=== PATIENT | male | born 1970 | race Caucasian/White ===

== ENCOUNTER 2023-12-20 11:20 | Outpatient (REF) | payer MEDICAID, SELFPAY ==
--- OUTSIDE RECORDS SUMMARY | 2023-12-20 11:23 | XMS_ITS | Encounter Summary ---
Author Organization [facility] Address [address] [place] [address] Care Team Providers Care Grounds Caretaker Name Role Phone Unavailable Primary Care Provider Unavailabl e Encounter Details Date Type Department Care Team (Late st Contact Info) Description 04/08/2005 13:27 EST Hospital Encounter [facility] - Other [address] [place] [address] Shivam Watson MD [address] [place] [address] Social History Tobacco Use Types Packs/Day Years Used Date Smoking Tobacco: Never Assessed Interpersonal Safety Answer Date Record ed Physically Hurt Never 11/10/2019 Verbally Threaten Not on file 11/10/2019 Sex and Gender Information Value Date Recorded Sex Assigned at Not on file Gender Identity Not on file Sexual Orientation Not on file documented as of this encounter Plan of Treatment Not on file documented as of this encounter Visit Diagnoses Not on filedocumented in this encounter
--- OUTSIDE RECORDS SUMMARY | 2023-12-20 11:23 | XMS_ITS | Encounter Summary ---
Author Organization [facility] Address [address] [place] [address] Care Team Providers Care Accreditation Manager Name Role Phone Unavailable Primary Care Provider Unavailabl e Encounter Details Date Type Department Care Team (Late st Contact Info) Description 05/13/2013 Results Only [facility] - [facility] ([facility] [address] [place] [address] [id number] Hemanth Chavez MD [address] [place] [id number] Social History Tobacco Use Types Packs/Day Years Used Date Smoking Tobacco: Never Assessed Sex and Gender Information Value Date Recorded Sex Assigned at Not on file Gender Identity Not on file Sexual Orientation Not on file documented as of this encounter Plan of Treatment Not on file documented as of this encounter Procedures Procedure Name Priority Date/Time Associated Diagnosis Comments SURGICAL PATHOLOGY Routine 05/13/2013 16 :21 EST documented in this encounter Results * SURGICAL PATHOLOGY (05/13/2013 16:21 EST) Pathology Report: SURGICAL PATHOLOGY REPORT Reports generated via electronic interface contain original data; however they are lacking the format of the original report. Caution should be taken when reading/interpreti ng unformatted reports. Name: ? DERRELL APODACA ? Accession #: ? [id number] ? : ? 1970 (Age: 43) ??M ? Collect Date: ? 05/13/2013 ? Location: ? [facility] ? Receive Date: ? 05/14/2013 ? Provider: HEMANTH CHAVEZ MD Copy to: ABRAHAN CLARK MD ? Final Pathologic Diagnosis: SUBMITTED SPERMATOCELE, RIGHT, EXCISION: - ??Spermatocele (3.2 cm). - ??Adjacent epididymis with no specific pathologic features. Document reviewed and electronically signed by: HAILEY CONDE MD Report ??Date: 05/17/2013 15:18 By the signature above, the attending physician certifies that he/she has personally conducted a gross and/or microscopic examination of the described specimens and rendered or confirmed the above diagnosis. Specimen(s) Received: Right spermatocele Clinical History: R supratesticular mass; clinical diagnosis code: ??550.90, 608.1 Gross Description: ? Received in formalin labelled with proper patient identification (initials B, R) and right spermatocele is a cosme-white fibromembranous cystic structure (3.2 x 2.2 x 1.6 cm). The specimen contains cloudy white fluid and has a smooth goyal-white inner lining without excrescences. The wall is translucent and less than 0.1 cm in thickness with no nodules present. Bookmaker'S Clerk sections are submitted as 1 and 2. Tess Herrera 05/15/2013 09:13 AM End of Report [facility]CH[facility] 05/13/2013 16:2 1 EST 05/14/2013 16:21 EST Hemanth Chavez MD PATHOLOGY ORDERABLES [facility] [address] [place] [address] documented in this encounter Visit Diagnoses Not on filedocumented in this encounter
--- OUTSIDE RECORDS SUMMARY | 2023-12-20 11:23 | XMS_ITS | Encounter Summary ---
Author Organization [facility] Address [address] [place] [address] Care Team Providers Care Dental Officer Name Role Phone Unavailable Primary Care Provider Unavailabl e Encounter Details Date Type Department Care Team (Latest Contact Info) Description 05/13/2013 13:41 EST - 05/13/2013 23:59 EST Hospital Encounter [address] [address] Unknown, Provider, Discharge Disposition: Home or Self Care Social History Tobacco Use Types Packs/Day Years Used Date Smoking Tobacco: Never Assessed Sex and Gender Information Value Date Recorded Sex Assigned at Not on file Gender Identity Not on file Sexual Orientation Not on file documented as of this encounter Discharge Disposition Disposition Code Departure Means Destination Home or Self [facility] documented in this encounter Plan of Treatment Not on file documented as of this encounter Visit Diagnoses Not on filedocumented in this encounter
--- OUTSIDE RECORDS SUMMARY | 2023-12-20 11:23 | XMS_ITS | Referral Summary ---
Author Organization [facility] Address [address] [place] [address] Care Team Providers Care Antisubmarine Weapons Officer Name Role Phone Tyler Tiwari DO Primary Care Provider [phone] Social History Tobacco Use Types Packs/Day Years Used Date Smoking Tobacco: Never Assessed Interpersonal Safety Answer Date Record ed Physically Hurt Never 11/10/2019 Verbally Threaten Not on file 11/10/2019 Sex and Gender Information Value Date Recorded Sex Assigned at Not on file Gender Identity Not on file Sexual Orientation Not on file Plan of Treatment Not on file Care Teams Antisubmarine Weapons Officer Relationship Specialty Start Date End Date Tyler Tiwari DO PCP - General 07/20/17
--- OUTSIDE RECORDS SUMMARY | 2023-12-20 11:23 | XMS_ITS | Encounter Summary ---
Author Organization [facility] Address [address] [place] [address] Care Team Providers Care Rolling Machine Operator Name Role Phone Unavailable Primary Care Provider Unavailabl e Encounter Details Date Type Department Care Team (Late st Contact Info) Description 02/18/2008 Before PRISM Converted Visit ([facility] - [facility] [address] [place] [address] Shivam Iyer MD [address] [place] [address] Social History Tobacco Use Types Packs/Day Years Used Date Smoking Tobacco: Never Assessed Sex and Gender Information Value Date Recorded Sex Assigned at Not on file Gender Identity Not on file Sexual Orientation Not on file documented as of this encounter Plan of Treatment Not on file documented as of this encounter Procedures Procedure Name Priority Date/Time Associated Diagnosis Comments SURGICAL PATHOLOGY Routine 02/18/2008 0:00 EST documented in this encounter Results * SURGICAL PATHOLOGY (02/18/2008 0:00 EST) Pathology Report: SURGICAL PATHOLOGY REPORT ? Reports generated via electronic interface contain original data; ? however they are lacking the format of the original report. ? Caution should be taken when reading/interpreti ng unformatted reports. ? Name: ? PAULIE, DERRELL E ? Accession #: ? [id number] ? : ? 1970 (Age: 38) ??M ? Collect Date: ? 02/18/2008 ? Location: ? [facility] ? Receive Date: ? 02/18/2008 ? Provider: SHIVAM IYER MD ? Copy to: MICAH MYERS WHEEL ALIGNER ? Final Pathologic Diagnosis: ? A. ?Rectum, biopsy: ? 1. ?Patchy superficial acute proctitis. ? 2. ? Intestinal spirochetosis. ? B. ?Duodenum, biopsy: ? 1. ?? No specific pathologic features. ? Document reviewed and electronically signed by: ? NATANAELASEN NELLA MBCHB ? Report ??Date: 02/20/2008 16:57 ? By the signature above, the attending physician certifies that he/she has ? personally conducted a gross and/or microscopic examination of the described ? specimens and rendered or confirmed the above diagnosis. ? Specimen(s) Received: ? A. ?Bx rectum (#1) ? B. ? Bx duodenum (#2) ? Clinical History: ? S/S acid peptic disease, diarrhea, abd cramps ? Gross Description: ? Received in Quibbe's fixative labelled Paulie and #1 bx rectum are ? three pieces of tissue which range from 0.8 x 0.2 x 0.2 cm to 0.2 x 0.2 x 0.1 cm which are submitted intact as (A). ? Received in Quibb's fixative labelled Paulie and #2 bx duodenum are two ?? pieces of tissue which measures 0.3 x 0.3 x 0.2 cm and 0.2 x 0.2 x 0.2 cm which are submitted intact as (B). ??(David Pool/hanh ? End of Report ? KAMRAN HUTCHINS 02/18/2008 02/18/2008 10: 14 EST Shivam Iyer MD PATHOLOGY ORDERABLE S [facility] [address] [place] [address] documented in this encounter Visit Diagnoses Not on filedocumented in this encounter
--- OUTSIDE RECORDS SUMMARY | 2023-12-20 11:23 | XMS_ITS | Clinical Summary ---
Author Organization [facility] Address [address] [place] [address] Care Team Providers Care Genetics Nurse Name Role Phone Tyler Tiwari DO Primary Care Provider [phone] Social History Tobacco Use Types Packs/Day Years Used Date Smoking Tobacco: Never Assessed Interpersonal Safety Answer Date Record ed Physically Hurt Never 11/10/2019 Verbally Threaten Not on file 11/10/2019 Sex and Gender Information Value Date Recorded Sex Assigned at Not on file Gender Identity Not on file Sexual Orientation Not on file Plan of Treatment Health Maintenance Due Date Last Done Comments Hepatitis C Screen 1970 Hepatitis B Vaccine (1 of 3 - 19+ 3-dose series) 01/05 COVID-19 Vaccine ( season) 2022 Care Teams Genetics Nurse Relationship Specialty Start Date End Date Tyler Tiwari DO PCP - General 07/20/17
--- OUTSIDE RECORDS SUMMARY | 2023-12-20 11:23 | XMS_ITS | Encounter Summary ---
Author Organization [facility] Address [address] [place] [address] Care Team Providers Care Instrument And Controls Technician Name Role Phone Unavailable Primary Care Provider Georgeabl e Encounter Details Date Type Department Care Team (Late st Contact Info) Description 04/08/2005 Results Only [facility] - [place] conversion [address] [place] [address] Shivam Iyer MD [address] [place] [address] Social History Tobacco Use Types Packs/Day Years Used Date Smoking Tobacco: Never Assessed Sex and Gender Information Value Date Recorded Sex Assigned at Not on file Gender Identity Not on file Sexual Orientation Not on file documented as of this encounter Plan of Treatment Not on file documented as of this encounter Procedures Procedure Name Priority Date/Time Associated Diagnosis Comments SURGICAL PATHOLOGY Routine 04/08/2005 0:00 EST documented in this encounter Results * SURGICAL PATHOLOGY (04/08/2005 0:00 EST) Pathology Report: SURGICAL PATHOLOGY REPORT Reports generated via electronic interface contain original data; however they are lacking the format of the original report. Caution should be taken when reading/interpreti ng unformatted reports. Name: ? DERRELL APODACA ? Accession #: ? [id number] ? : ? 1970 (Age: 35) ??M ? Collect Date: ? 04/08/2005 ? Location: ? [facility] ? Receive Date: ? 04/09/2005 ? Provider: SHIVAM IYER MD Copy to: MARIAJOSE ETIENNE WELDER 2ND SHIFT ? Final Pathologic Diagnosis: A. ?Thyroid, right lobe and partial left lobe, subtotal thyroidectomy: 1. ?Papillary thyroid carcinoma. ? - Extension into parathyroidal soft tissue. - Tumor size: 3.0 cm maximum dimension (AJCC:pT3). ??See comment. - Tumor abuts left anterolateral resection margin (A27, A28). - Sixteen of nineteen perithyroidal lymph nodes positive for malignancy (16/19)(AJCC:pN1). B. ?Lymph nodes, right anterior triangle, excision: 1. ?No metastatic carcinoma. 2. ?One parathyroid gland. 3. ?No lymph node identified. C. ?Soft tissue, superior mediastinum, excision: 1. ?No metastatic carcinoma. 2. ?Vascular adipose tissue. 3. ?No lymph node identified. D. ?Lymph node, left anterior triangle, excision: 1. ?No metastatic carcinoma. 2. ?Vascular adipose tissue. 3. ?No lymph node identified. Comment: ? The AJCC:pT3 pN1 correlates with a stage III. ??(Dr. Tovar)/[facility] Document reviewed and electronically signed by: Juliana Costello MD Report ??Date: 04/15/2005 15:30 By the signature above, the attending physician certifies that he/she has personally conducted a gross and/or microscopic examination of the described specimens and rendered or confirmed the above diagnosis. Specimen(s) Received: A. ?Thyroid right lobe + partial left lobe: ??long suture right, short suture left, double suture anterior (#1) B. ?Rt ant triangle (#2) C. ?Superior mediastinum (#3) D. ?Left anterior triangle (#4) Clinical History: ? Papillary Ca thyroidectomy FNA Gross Description: ? Received in formalin labelled [place] and thyroid Rt lobe, partial Lt long suture right, short suture left, double anterior is the product of a right lobectomy and partial left lobectomy which weighs 38.95 grams. ??The specimen is oriented as per the surgical pathology requisition slip and the specimen container label. ??The specimen is bisected into right and left lobes. ??Posterior is inked blue and remaining surfaces inked black. ??The right lobe measures 7.0 cm from superior to inferior, 3.0 cm from lateral to medial, and 1.5 cm from anterior to posterior. ??The left lobe measures 5.7 cm from superior to inferior, 3.0 cm from medial to lateral, and ranges from 1.0 cm to 2.0 cm at the isthmus from anterior to posterior. ??The capsule of the entire specimen is goyal-red and appears intact. ??Serially sectioning both lobes from superior to inferior reveals a firm, white-yellow nodule in the isthmus extending into both the right and left lobes which measures 3.0 x 2.5 x 2.0 cm, appears encapsulated, extending to but not through the capsule. ??The right lobe is serially sectioned from superior to inferior into nineteen levels and this nodule is located within levels 13-19 (with level 19 being most inferior). ??The left lobe is serially sectioned from superior to inferior into thirteen levels with this nodule located in levels 6-13 (with level 13 being most inferior). ??The uninvolved parenchyma is homogeneous and deep red. ??The entire specimen is submitted as follows: BLOCK GREY A1 ?Level 1, right lobe, superior, perpendicular sections A2 ?Level 2, right lobe A3 ?Level 3, right lobe A4 ?Level 4, right lobe A5 ?Level 5, right lobe A6 ?Level 6, right lobe A7 ?Level 7, right lobe A8 ?Level 8, right lobe A9 ?Level 9, right lobe A10 ?Level 10, right lobe A11 ?Level 11, right lobe A12 ?Level 12, right lobe A13 ?Level 13, right lobe A14 ?Level 14, right lobe A15 ?Level 15, right lobe A16 ?Level 16, right lobe A17 ?Level 17, right lobe A18 ?Level 18, bisected right lobe A19, A20 ? Level 19, right lobe, inferior, perpendicular sections A21 ?Level 1, left lobe, superior, perpendicular sections A22 ?Level 2 and 3, left lobe A23 ?Level 4, left lobe A24 ?Level 5, left lobe A25 ?Level 6, bisected left lobe A26 ?Level 7, left lobe A27 ?Level 8, bisected left lobe A28, A29 ? Level 9, left lobe, bisected and thinned A30, A31 ? Level 10, left lobe, bisected A32 ?Level 11, left lobe A33 ?Level 12, left lobe A34 ?Level 13, left lobe, inferior, perpendicular sections Received in formalin labelled [place] and right ant triangle lymph nodes are two possible goyal-pink lymph nodes with a small amount of adipose tissue received on a Telfa pad. ??The smaller lymph node measures 0.8 x 0.3 x 0.2 cm, and the larger one measures 0.8 x 0.8 x 0.3 cm. ??The entire specimen is submitted as (B). Received in formalin labelled [place] and superior mediastinum is a 0.8 x 0.5 x 0.2 cm lymph node received on a Telfa pad and entirely submitted as (C). Received in formalin labelled [place] and left ant triangle lymph node is a 1.7 x 1.0 x 0.1 cm portion of fibrofatty tissue containing a possible lymph node received on a Telfa pad and entirely submitted as (D). ??(Dr. Bond)/kmm ?? End of Report KAMRAN HUTCHINS 04/08/2005 04/09/2005 8:1 8 EST Shivam Iyer MD PATHOLOGY ORDERABLE [facility] [address] [place] [address] documented in this encounter Visit Diagnoses Not on filedocumented in this encounter
--- OUTSIDE RECORDS SUMMARY | 2023-12-20 11:23 | XMS_ITS | Encounter Summary ---
Author Organization [facility] Address [address] [place] [address] Care Team Providers Care Insurance Marketing Rep Name Role Phone Unavailable Primary Care Provider Allan e Encounter Details Date Type Department Care Team (Late st Contact Info) Description 03/23/2005 Results Only [facility] - [place] conversion [address] [place] [address] Shivam Iyer MD [address] [place] [address] Social History Tobacco Use Types Packs/Day Years Used Date Smoking Tobacco: Never Assessed Sex and Gender Information Value Date Recorded Sex Assigned at Not on file Gender Identity Not on file Sexual Orientation Not on file documented as of this encounter Plan of Treatment Not on file documented as of this encounter Procedures Procedure Name Priority Date/Time Associated Diagnosis Comments CYTOPATHOLOGY Routine 03/23/2005 0:00 EST documented in this encounter Results * CYTOPATHOLOGY (03/23/2005 0:00 EST) Pathology Report: CYTOPATHOLOGY REPORT Reports generated via electronic interface contain original data; however they are lacking the format of the original report. Caution should be taken when reading/interpreti ng unformatted reports. Name: ? DERRELL APODACA ? Accession #: ? [id number] : ? 1970 (Age: 35) ??M ?Collect Date: ? 03/23/2005 Location: ? [facility] ? Receive Date: ? 03/25/2005 Provider: ? SHIVAM IYER MD Copy to: ?MARIAJOSE ETIENNE CONDUIT CLEANER ? CYTOLOGIC DIAGNOSIS: ? Thyroid, fine needle aspiration: 1. ?Positive for malignant cells. 2. ?Papillary carcinoma. ??See comment. ? COMMENT: ? Moderately cellular cytologic preparation.Two populations of cells, the usual follicular cell as well as Hurthle cell type epithelium. ??Several nuclear grooves and nuclear inclusions are seen. ??Many of the cells have hyperchromatic powdery chromatin and oval-shaped nuclei. Multiple psammoma bodies are also seen. ??These features are diagnostic of papillary carcinoma. ??(Dr. Maloney)/[facility] Document reviewed and electronically signed by: ? AUBREY MALONEY MD Report Date: ??04/05/2005 14:10 By the signature above, the attending physician certifies that he/she has personally conducted a gross and/or microscopic examination of the described specimens and rendered or confirmed the above diagnosis. Specimen Type: ? Thyroid, Fine Needle Aspiration Clinical History: ? Clinical diagnosis code: ??241.0 ? Gross Description: ? 1 tube of Cytolyt was received and processed by selective cellular enhancement technique. ? End of Report KAMRAN HUTCHINS 03/23/2005 03/25/2005 8:3 5 EST Shivam Iyer MD PATHOLOGY ORDERABLE S [facility] [address] [place] [address] documented in this encounter Visit Diagnoses Not on filedocumented in this encounter
--- OUTSIDE RECORDS SUMMARY | 2023-12-20 11:23 | XMS_ITS | Encounter Summary ---
Author Organization [facility] Address [address] [place] [address] Care Team Providers Care Sleeve Turner Name Role Phone Unknown, Provider Primary Care Provider [phone] Encounter Details Date Type Department Care Team (Late st Contact Info) Description 07/17/2017 Results Only [facility] [phone] Lobo Roper MD [address] [place] [address] [place] [address] Social History Tobacco Use Types Packs/Day Years Used Date Smoking Tobacco: Never Assessed Sex and Gender Information Value Date Recorded Sex Assigned at Not on file Gender Identity Not on file Sexual Orientation Not on file documented as of this encounter Plan of Treatment Not on file documented as of this encounter Procedures Procedure Name Priority Date/Time Associated Diagnosis Comments SURGICAL PATHOLOGY Routine 07/17/2017 15 :44 EDT documented in this encounter Results * SURGICAL PATHOLOGY (07/17/2017 15:44 EDT) Pathology Report: SURGICAL PATHOLOGY REPORT Reports generated via electronic interface contain original data; however they are lacking the format of the original report. Caution should be taken when reading/interpret ing unformatted reports. Name: ? DERRELL APODACA ? Accession #: ? [id number] ? : ? 1970 (Age: 47) ??M ? Collect Date: ? 07/17/2017 ? Location: ? [facility] ? Receive Date: ? 07/18/2017 ? Provider: LOBO ROPER MD Copy to: ABRAHAN SHEPPARD DO ? Final Pathologic Diagnosis: A. ??STOMACH ANTRUM, BIOPSY: - Chronic Active Gastritis. - Positive for numerous Helicobacter-pylo ri organisms. B. ??STOMACH BODY, BIOPSY: - Chronic Active Gastritis. - Positive for numerous Helicobacter-pylo ri organisms. Document reviewed and electronically signed by: DEMETRIUS GEE MD Report ??Date: 07/20/2017 11:28 By the signature above, the attending physician certifies that he/she has personally conducted a gross and/or microscopic examination of the described specimens and rendered or confirmed the above diagnosis. Specimen(s) Received: A. ??Gastric antrum bx B. ??Gastric body bx Clinical History: C/C GERD, no Shine's esophagus noted, has endoscopic evidence of gastritis; clinical diagnosis code: ??K21.9 Gross Description: A. ?Received in formalin labelled with proper patient identification (initials B, R) and gastric antrum bx are two fragments of pearly white tissue measuring 0.2 cm and 0.3 cm in greatest dimension. The specimens are submitted entirely in A1. B. ?Received in formalin labelled with proper patient identification (initials B, R) and gastric body bx is a single fragment of goyal-white tissue (0.2 x 0.2 x 0.2 cm). The specimen is submitted entirely in B1. YANDEL Hernandez (ASCP) 07/18/2017 4:00 PM End of Report [facility] 07/17/2017 15:4 4 EDT 07/18/2017 15:44 EDT Lobo Roper MD PATHOLOGY ORDERABLES [facility] [address] [place] [address] documented in this encounter Visit Diagnoses Not on filedocumented in this encounter Care Teams Sleeve Turner Relationship Specialty Start Date End Date Unknown, Provider, PCP - General 05/17/13 07/19/17 documented as of this encounter
--- OUTSIDE RECORDS SUMMARY | 2023-12-20 11:23 | XMS_ITS | Encounter Summary ---
Author Organization [facility] Address [address] [place] [address] Care Team Providers Care Shoemaking Cutter Name Role Phone Unavailable Primary Care Provider Unavailabl e Encounter Details Date Type Department Care Team (Latest Contact Info) Description 04/20/2000 17:31 EST - 04/23/2000 11:59 EST Hospital Encounter [facility] General Surgery Unit [address] [place] [address] Nahum Montenegro MD [address] [place] [address] [address] [place] [address] Discharge Disposition: Home or Self Care Social History Tobacco Use Types Packs/Day Years Used Date Smoking Tobacco: Never Assessed Sex and Gender Information Value Date Recorded Sex Assigned at Not on file Gender Identity Not on file Sexual Orientation Not on file documented as of this encounter Discharge Disposition Disposition Code Departure Means Destination Home or Self Care documented in this encounter Plan of Treatment Not on file documented as of this encounter Procedures Procedure Name Priority Date/Time Associated Diagnosis Comments CREATININE Routine 04/22/2000 10:50 EST COMPLETE BLOOD COUNT Routine 04/22/2000 10:50 EST BUN Routine 04/22/2000 10:50 EST ELECTROLYTES Routine 04/22/2000 10:50 EST KIDNEY STONE ANALYSIS Routine 04/21/2000 9:[address] PELVIS WO/CONTRAST Routine 04/21/2000 9:[address] ABDOMEN (LUNG BASES TO ILIAC CREST) WO CONTRAST Routine 04/21/2000 9:09 EST URINE MICROSCOPIC Routine 04/20/2000 20: 00 EST URINALYSIS WITH MICROSCOPIC IF POSITIVE Routine 04/20/2000 20:00 EST BACTERIAL CULTURE, URINE Routine 04/20/2000 20:00 EST CREATININE Routine 04/20/2000 17:10 EST COMPLETE BLOOD COUNT Routine 04/20/2000 17:10 EST BUN Routine 04/20/2000 17:10 EST ELECTROLYTES Routine 04/20/2000 17:10 EST documented in this encounter Results * (ABNORMAL) ELECTROLYTES (04/22/2000 10:50 EST) Sodium 135(L) 136 - 145 mEq/L [facility] Potassium 5.0 3.5 - 5.0 mEq/L [facility] Chloride 97 96 - 110 mEq/L [facility] CO2 31(H) 24 - 30 mEq/L [facility] 04/22/2000 10:5 0 EST 04/22/2000 11:40 EST Nahum Montenegro MD CHEMISTRY & BLOOD GA S ORDERABLES Performing Organization Address [facility] Co de Phone Number [facility] [address] [place] [address] * CREATININE (04/22/2000 10:50 EST) Creatinine 1.2 0.7 - 1.5 mg/dl [facility] 04/22/2000 10:5 0 EST 04/22/2000 11:40 EST Nahum Montenegro MD HISTORICAL LAB FOR S Q LOAD Performing Organization Address [facility] Co de Phone Number [facility] [address] [place] [address] * (ABNORMAL) HEMAGRAM (04/22/2000 10:50 EST) Pathologist [facility] WBC 7.28 4.0 - 10.4 K/cmm [facility] RBC 4.21(L) 4.36 - 5.78 M/cmm [facility] Hemoglobin 13.8 13.8 - 17.3 gm/dl [facility] HCT 39.4(L) 39.5 - 50.2 % [facility] MCV 94 81 - 95 fl [facility] MCH 32.9 27.6 - 33.0 pg [place] [facility] MCHC 35.1 32.8 - 36.4 gm/dl [facility] PLT 194 141 - 320 K/cmm [facility] RDW-CV 12.4 11.8 - 14.1 % [facility] 04/22/2000 10:5 0 EST 04/22/2000 11:40 EST Nahum Montenegro MD HEMATOLOGY & PF4 ORD ERABLES [facility] [address] [place] [address] * (ABNORMAL) BUN (04/22/2000 10:50 EST) [facility] BUN 9(L) 10 - 26 mg/dl [facility] 04/22/2000 10:5 0 EST 04/22/2000 11:40 EST Nahum Montenegro MD CHEMISTRY & BLOOD GA S ORDERABLES [facility] [address] [place] [address] * KIDNEY STONE ANALYSIS (04/21/2000 9:48 EST) Pathologist [facility] Source (Note) Right Ureter ? [facility] Weight 0.014 Unit: g ?? [facility] 1st Constituent (Note) 100% Calcium oxalate monohydrate ? [facility] 04/21/2000 9:48 EST 04/22/2000 9:48 EST Nahum Montenegro MD GEN LAB UNIT COLLECT ORDERABLES [facility] [address] [place] [address] * CT PELVIS WO/CONTRAST (04/21/2000 9:10 EST) Anatomical Region Laterality Modality Other 04/21/2000 9:10 EST Impressions 02/17/2009 19:36 EST IMPRESSION: 1. Obstructing stone, right ureterovesical junction and possible duplex right collecting system. There is stranding around the right ureter and although there appears to be two ureters, this is not clearly seen. 2. Multiple other small additional intrarenal stones. 3. Splenomegaly. 4. Ascites and pleural effusions. /law Narrative 02/17/2009 19:36 EST RT FLANK PAIN, R.O STONE CT OF THE ABDOMEN AND PELVIS WITHOUT CONTRAST (RENAL COLIC CT) DATE: 04/21/2000 HISTORY: Right flank pain. Rule out stone. TECHNIQUE: Axial helical scans were obtained from the top of the kidneys through the base of the bladder with no oral or intravenous contrast. FINDINGS: There are bilateral pleural effusions and bilateral lower lobe atelectasis. There is a moderate amount of free fluid in the pelvis, consistent with ascites. Multiple kidney stones are seen bilaterally. There are two 2 mm stones in the upper pole left kidney, there is a 4 mm stone in the upper pole right kidney, a 2 mm stone upper pole right kidney, and a 1 mm stone lower pole right kidney. There is right-sided pelvicaliectasis and perinephric stranding. There is mild dilatation of the right ureter. There may be a duplex right collecting system. There is a 5 mm obstructing stone at the right ureterovesical junction. The appendix is normal. The spleen is enlarged, measuring between 15 and 16 cm in craniocaudal extent. Procedure Note Fay Fontana MD - 02/17/2009 RT FLANK PAIN, R.O STONE CT OF THE ABDOMEN AND PELVIS WITHOUT CONTRAST (RENAL COLIC CT) DATE: 04/21/2000 HISTORY: Right flank pain. Rule out stone. TECHNIQUE: Axial helical scans were obtained from the top of the kidneys through the base of the bladder with no oral or intravenous contrast. FINDINGS: There are bilateral pleural effusions and bilateral lower lobe atelectasis. There is a moderate amount of free fluid in the pelvis, consistent with ascites. Multiple kidney stones are seen bilaterally. There are two 2 mm stones in the upper pole left kidney, there is a 4 mm stone in the upper pole right kidney, a 2 mm stone upper pole right kidney, and a 1 mm stone lower pole right kidney. There is right-sided pelvicaliectasis and perinephric stranding. There is mild dilatation of the right ureter. There may be a duplex right collecting system. There is a 5 mm obstructing stone at the right ureterovesical junction. The appendix is normal. The spleen is enlarged, measuring between 15 and 16 cm in craniocaudal extent. IMPRESSION IMPRESSION: 1. Obstructing stone, right ureterovesical junction and possible duplex right collecting system. There is stranding around the right ureter and although there appears to be two ureters, this is not clearly seen. 2. Multiple other small additional intrarenal stones. 3. Splenomegaly. 4. Ascites and pleural effusions. /law Nahum Montenegro MD G CT ORDERABLES * CT ABDOMEN WO CONTRAST (04/21/2000 9:09 EST) Anatomical Region Laterality Modality Other 04/21/2000 9:09 EST Narrative 02/17/2009 19:36 EST RT FLANK PAIN, R.O STONE Procedure Note Fay Fontana MD - 02/17/2009 RT FLANK PAIN, R.O STONE Nahum Montenegro MD G CT ORDERABLES * BACTERIAL CULTURE, URINE (04/20/2000 20:00 EST) Specimen Description Urine [facility] Result No growth [facility] Report Status Final [id number] [facility] 04/20/2000 20:0 0 EST 04/20/2000 21:20 EST Nahum Montenegro MD MICROBIOLOGY - GENER AL ORDERABLES [facility] [address] [place] [address] * URINE MICROSCOPIC (04/20/2000 20:00 EST) WBC, UA 1 to 5 0 - 5 /HPF [facility] RBC, UA >50 0 - 5 /HPF [facility] Squam Epithel, UA None seen NS /HPF [facility] Renal Epithel, UA None seen NS /HPF [facility] Bacteria, UA None seen NS /HPF [facility] Crystals, UA None seen /HPF [facility] Hyaline Casts, UA None seen /LPF [facility] UA Comment Microscopic results are unreliable on urines unrefrig >2hrs or refrig >8hrs. [facility] 04/20/2000 20:0 0 EST 04/20/2000 20:38 EST Nahum Montenegro MD URINALYSIS ORDERABLE S Performing Organization Address [facility] de Phone Number [facility] [address] [place] [address] * (ABNORMAL) URINALYSIS (04/20/2000 20:00 EST) Color, UA Red [facility] Clarity, UA Cloudy [facility] Glucose, UA Norm NORM [facility] Bilirubin, UA Neg NEG [facility] Ketones, UA Mod(A) NEG [facility] Specific [place], Urine 1.010 1.005 - 1.02 [facility] Blood, UA Large(A) NEG [facility] pH, UA 5.0 5.0 - 9.0 [facility] Protein, UA 1+(A) NEG [facility] Urobilinogen, UA Norm NORM mg/dL [facility] Nitrite, UA Neg NEG [facility] Leuk Esterase Small(A) NEG [facility] 04/20/2000 20:0 0 EST 04/20/2000 20:38 EST Nahum Montenegro MD URINALYSIS ORDERABLE S Performing Organization Address [facility] de Phone Number [facility] [address] [place] [address] * ELECTROLYTES (04/20/2000 17:10 EST) Sodium 137 136 - 145 mEq/L [facility] Potassium 4.8 3.5 - 5.0 mEq/L [facility] Chloride 104 96 - 110 mEq/L [facility] CO2 25 24 - 30 mEq/L [facility] 04/20/2000 17:1 0 EST 04/20/2000 19:15 EST Nahum Montenegro MD CHEMISTRY & BLOOD GA S ORDERABLES Performing Organization Address [facility] Co de Phone Number [facility] [address] [place] [address] * CREATININE (04/20/2000 17:10 EST) Pathologist [facility] Creatinine 1.3 0.7 - 1.5 mg/dl [facility] 04/20/2000 17:1 0 EST 04/20/2000 19:15 EST Nahum Montenegro MD HISTORICAL LAB FOR S Q LOAD Performing Organization Address [facility] Co de Phone Number [facility] [address] [place] [address] * (ABNORMAL) HEMAGRAM (04/20/2000 17:10 EST) Pathologist [facility] WBC 8.13 4.0 - 10.4 K/cmm [facility] RBC 4.16(L) 4.36 - 5.78 M/cmm [facility] Hemoglobin 14.1 13.8 - 17.3 gm/dl [facility] HCT 38.7(L) 39.5 - 50.2 % [facility] MCV 93 81 - 95 fl [facility] MCH 33.9(H) 27.6 - 33.0 pg [facility] MCHC 36.4 32.8 - 36.4 gm/dl [facility] PLT 155 141 - 320 K/cmm [facility] RDW-CV 12.5 11.8 - 14.1 % [facility] 04/20/2000 17:1 0 EST 04/20/2000 19:15 EST Nahum Montenegro MD HEMATOLOGY & PF4 ORD ERABLES Performing Organization Address City/[facility] Co de Phone Number [facility] [address] [place] [address] * BUN (04/20/2000 17:10 EST) BUN 10 10 - 26 mg/dl [facility] 04/20/2000 17:1 0 EST 04/20/2000 19:15 EST Nahum Montenegro MD CHEMISTRY & BLOOD GA S ORDERABLES Performing Organization Address [facility] Co de Phone Number [facility] [address] [place] [id number] documented in this encounter Visit Diagnoses Not on filedocumented in this encounter
--- OUTSIDE RECORDS SUMMARY | 2023-12-20 11:23 | XMS_ITS | Encounter Summary ---
Author Organization [facility] Address [address] [place] [address] Care Team Providers Care Dial Lathe Operator Name Role Phone Unknown, Provider Primary Care Provider [phone] Encounter Details Date Type Department Care Team (Latest Contact Info) Description 07/17/2017 11:07 EDT - 07/17/2017 23:59 EDT Hospital Encounter [address] [address] Unknown, Provider, Discharge Disposition: Home or Self Care Social History Tobacco Use Types Packs/Day Years Used Date Smoking Tobacco: Never Assessed Sex and Gender Information Value Date Recorded Sex Assigned at Not on file Gender Identity Not on file Sexual Orientation Not on file documented as of this encounter Discharge Disposition Disposition Code Departure Means Destination Home or Self Fdc documented in this encounter Plan of Treatment Not on file documented as of this encounter Visit Diagnoses Not on filedocumented in this encounter Care Teams Dial Lathe Operator Relationship Specialty Start Date End Date Unknown, Provider, PCP - General 05/17/13 07/19/17 documented as of this encounter
--- OUTSIDE RECORDS SUMMARY | 2023-12-20 11:23 | XMS_ITS | Encounter Summary ---
Author Organization [facility] Address [address] [place] [address] Care Team Providers Care Ship Pilot Name Role Phone Tyler Tiwari Primary Care Provider [phone] Encounter Details Date Type Department Care Team (Late st Contact Info) Description 06/08/2019 Lab Requisition [facility] Pathology & Laboratory Medicine - [facility] [address] [place] [address] Darrel Torres MD [address] [place] [phone] Encounter for screening for malignant neoplasm of colon; Gastro-esophageal reflux disease without esophagitis; Personal history of other infectious and parasitic diseases; Heartburn Social History Tobacco Use Types Packs/Day Years Used Date Smoking Tobacco: Never Assessed Sex and Gender Information Value Date Recorded Sex Assigned at Not on file Gender Identity Not on file Sexual Orientation Not on file documented as of this encounter Plan of Treatment Not on file documented as of this encounter Procedures Procedure Name Priority Date/Time Associated Diagnosis Comments SURGICAL PATHOLOGY Today 06/07/2019 7:35 EST Encounter for screening for malignant neoplasm of colon Gastro-esophageal reflux disease without esophagitis Personal history of other infectious and parasitic diseases Heartburn documented in this encounter Results * SURGICAL PATHOLOGY (06/07/2019 7:35 EST) Final Diagnosis A. STOMACH, PRE-PYLORIC, BIOPSY: - Gastric antral mucosa with reactive (chemical) gastropathy. - Negative for Helicobacter pylori microorganisms on H&E stained sections. B. COLON, BIOPSIES: - Fragments of colonic mucosa with no significant diagnostic abnormality. C. RECTUM, POLYP, BIOPSY: - Hyperplastic polyp. 06/10/2019 10:31 [facility] at 1031 Clinical History Hx of H. pylori (treated in past); diarrhea etiol unknown; neg colon except rectal polyp (diminutive) and pancolon biopsies; clinical diagnosis code: K21.9, Z86.19; R12, Z12.11 06/10/2019 10:31 [facility] Attestation By the signature below, the attending physician certifies that they have 1) personally conducted a gross and/or microscopic examination of the described specimen(s), and/or personally interpreted the results of laboratory testing of the described specimen(s), and 2) personally rendered or confirmed the above diagnosis. 06/10/2019 10:31 [facility] at 1031 Gross Description A. Received in formalin labelled with proper patient identification (initials B, R) and pre pyloric Bx are 8 pink-goyal tissues (0.2 x 0.2 x 0.1 cm to 0.5 x 0.2 x 0.1 cm). Entirely submitted in A1 through A3. B. Received in formalin labelled with proper patient identification (initials B, R) and Godinez colon biopsies are 9 goyal-brown tissues (0.2 x 0.1 x 0.1 cm to will 0.6 x 0.2 x 0.1 cm). Entirely submitted in B1 through B3. C. Received in formalin labelled with proper patient identification (initials B, R) and 2 mm rectal polyp are two pink-goyal tissues (0.2 x 0.2 x 0.2 cm and 0.2 x 0.2 x 0.2 cm). Entirely submitted in C1. Kierra Jorgensen 06/08/2019 8:00 06/10/2019 10:31 [facility] Scanned Images 06/10/2019 10:31 [facility] Tissue SPECIMEN FROM RECTUM / Unknown 06/07/2019 7:35 EST 06/08/2019 6:59 EST Tissue specimen (specimen) COLON STRUCTURE / Unknown 06/07/2019 7:35 EST 06/08/2019 6:59 EST Tissue specimen (specimen) SPECIMEN FROM RECTUM / Unknown 06/07/2019 7:35 EST 06/08/2019 6:59 EST Darrel Torres MD PATHOLOGY ORDERABLES [facility] [address] [place] [address] documented in this encounter Visit Diagnoses Diagnosis Encounter for screening for malignant neoplasm of colon Special screening for malignant neoplasms, colon Gastro-esophageal reflux disease without esophagitis Esophageal reflux Personal history of other infectious and parasitic diseases Heartburn documented in this encounter Care Teams Ship Pilot Relationship Specialty Start Date End Date Tyler Tiwari DO PCP - General 07/20/17 documented as of this encounter
[2023-12-20 20:09] LABS: ALT 28 U/L (16-63); AST 26 U/L (15-37); Albumin 4.1 g/dL (3.4-5.0); Alkaline Phosphatase 81 U/L (46-116); Anion Gap 5.5 mmol/L (3-11); BUN 12 mg/dL (7-18); Bilirubin, Total 0.77 mg/dL (0.2-1.0); CO2 28.5 mmol/L (21.0-32.0); CREATININE 1.3 mg/dL (0.70-1.30); Calcium 8.6 mg/dL (8.5-10.1); Chloride 106 mmol/L (98-107); Estimated GFR 64.88 (mL/min/1.73m2); Glucose 68 mg/dL (74-106); Potassium 4.6 mmol/L (3.5-5.1); Sodium 140 mmol/L (136-145); TSH 14.06 uIU/Ml (0.36-3.74); Total Protein 7.1 g/dL (6.4-8.2)
== END 2023-12-20 11:21 | disposition home or self-care (01) ==
LOC: NCHCN 11:20
PROVIDERS: PCP Nurse Practitioner; Visit Provider Nurse Practitioner Family
DX: E03.9 Hypothyroidism, unspecified (principal); I10 Essential (primary) hypertension
CPT/HCPCS: 80053; 84443

== ENCOUNTER 2024-03-01 11:40 | Outpatient (REF) | payer MEDICAID, SELFPAY ==
--- OUTSIDE RECORDS SUMMARY | 2024-03-01 11:40 | XMS_ITS | Encounter Summary ---
Author Organization [facility] Address [address] [place] [address] Care Team Providers Care Shoeblack Name Role Phone Unavailable Primary Care Provider Unavailabl e Encounter Details Date Type Department Care Team (Late st Contact Info) Description 04/08/2005 Results Only [facility] [address] [place] [address] Shivam Iyer MD [address] [place] [address] Social History Tobacco Use Types Packs/Day Years Used Date Smoking Tobacco: Never Assessed Sex and Gender Information Value Date Recorded Sex Assigned at Not on file Legal Sex Male 18:26 EST Gender Identity Not on file Sexual Orientation [...] ? DERRELL APODACA ? Accession #: ? [id number] ? : ? 1970 (Age: 35) ??M ? Collect Date: ? 04/08/2005 ? Location: ? [facility] ? Receive Date: ? 04/09/2005 ? Provider: SHIVAM IYER MD Copy to: MARIAJOSE ETIENNE BOX COVERER HAND ? Final Pathologic Diagnosis: A. ?Thyroid, right [...] pN1 correlates with a stage III. ??(Dr. Tovar)/[facility] Document reviewed and electronically signed by: Juliana [...] ??(Dr. Bond)/kmm ?? End of Report [facility] 04/08/2005 04/09/2005 8:1 8 EST us Shivam Iyer MD PATHOLOGY ORDERABLES Final Result Performing Organization Address City/State/[facility] Co de Phone Number [facility] [address] [place] [address] documented in this encounter Visit Diagnoses Not on filedocumented in this encounter
--- OUTSIDE RECORDS SUMMARY | 2024-03-01 11:40 | XMS_ITS | Referral Summary ---
Author Organization [facility] Address [address] [place] [address] Care Team Providers Care Ring Spinner Name Role Phone Tyler Tiwari Primary Care Provider [phone] Social History Tobacco Use Types Packs/Day Years Used Date Smoking Tobacco: Never Assessed Interpersonal Safety Answer Date Record ed Physically Hurt Never 11/10/2019 Verbally Threaten Not on file 11/10/2019 Sex and Gender Information Value Date Recorded Sex Assigned at Not on file Legal Sex Male 18:26 EST Gender Identity Not on file Sexual Orientation Not on file Plan of Treatment Not on file Insurance MEDICAID [place] Care Teams Ring Spinner Relationship Specialty Start Date End Date Tyler Twiari DO PCP - General 07/20/17
--- OUTSIDE RECORDS SUMMARY | 2024-03-01 11:40 | XMS_ITS | Encounter Summary ---
Author Organization [facility] Address [address] [place] [address] Care Team Providers Care Publications Designer Name Role Phone Tyler Tiwari Primary Care Provider [phone] Encounter Details Date Type Department Care Team (Late st Contact Info) Description 06/08/2019 Lab Requisition [facility] Pathology & Laboratory Medicine - [address] [address] Darrel Torres MD [address] [phone] Encounter for screening for malignant neoplasm [...] POLYP, BIOPSY: - Hyperplastic polyp. 06/10/2019 10:31 [facility] at 1031 Clinical History Hx of H. pylori (treated in past); diarrhea etiol unknown; neg colon except rectal polyp (diminutive) and pancolon biopsies; clinical diagnosis code: K21.9, Z86.19; R12, Z12.11 06/10/2019 10:31 [facility] Attestation By the signature below, the attending physician certifies that they have 1) personally conducted a gross and/or microscopic examination of the described specimen(s), and/or personally interpreted the results of laboratory testing of the described specimen(s), and 2) personally rendered or confirmed the above diagnosis. 06/10/2019 10:31 [facility] at 1031 Gross Description A. [...] C1. Kierra Jorgensen 06/08/2019 8:00 06/10/2019 10:31 [facility] Scanned Images 06/10/2019 10:31 [facility] Tissue SPECIMEN FROM RECTUM / Unknown 06/07/2019 7:35 EST 06/08/2019 6:59 EST Tissue specimen (specimen) COLON STRUCTURE / Unknown 06/07/2019 7:35 EST 06/08/2019 6:59 EST Tissue specimen (specimen) SPECIMEN FROM RECTUM / Unknown 06/07/2019 7:35 EST 06/08/2019 6:59 EST us Darrel Torres MD PATHOLOGY ORDERABLES Final R esult [facility] [address] [place] [address] documented in this encounter Visit Diagnoses Diagnosis Encounter for screening for malignant neoplasm of colon Special screening for malignant neoplasms, colon Gastro-esophageal reflux disease without esophagitis Esophageal reflux Personal history of other infectious and parasitic diseases Heartburn documented in this encounter Care Teams Publications Designer Relationship Specialty Start Date End Date Tyler Tiwari DO PCP - General 07/20/17 documented as of this encounter
--- OUTSIDE RECORDS SUMMARY | 2024-03-01 11:40 | XMS_ITS | Encounter Summary ---
Author Organization [facility] Address [address] [place] [address] Care Team Providers Care Area Loss Prevention Manager Name Role Phone Unavailable Primary Care Provider Unavailabl e Encounter Details Date Type Department Care Team (Late st Contact Info) Description 04/08/2005 13:27 EST Hospital Encounter [facility] - Other [address] [place] [address] Shivam Watson MD [address] [place] [phone] Social History Tobacco Use Types Packs/Day Years [...]
--- OUTSIDE RECORDS SUMMARY | 2024-03-01 11:40 | XMS_ITS | Encounter Summary ---
Author Organization [facility] Address [address] [place] [address] Care Team Providers Care Ob Scrub Tech Name Role Phone Unavailable Primary Care Provider Unavailabl e Encounter Details Date Type Department Care Team (Late st Contact Info) Description 03/23/2005 Results Only [facility] - [facility] [address] [place] [address] Shivam Iyer MD [address] [place] [address] Social History Tobacco Use Types Packs/Day Years [...] ? DERRELL APODACA ? Accession #: ? [id number] : ? 1970 (Age: 35) ??M ?Collect Date: ? 03/23/2005 Location: ? [facility] ? Receive Date: ? 03/25/2005 Provider: ? SHIVAM IYER MD Copy to: ?MARIAJOSE ETIENNE TURN LASTER ? CYTOLOGIC DIAGNOSIS: ? 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 ??(Dr. Maloney)/[facility] Document reviewed and electronically signed by: ? [...] enhancement technique. ? End of Report [facility] 03/23/2005 03/25/2005 8:3 5 EST us Shivam Iyer MD PATHOLOGY ORDERABLES Final Result [facility] [address] [place] [address] documented in this encounter Visit Diagnoses Not on filedocumented in this encounter
--- OUTSIDE RECORDS SUMMARY | 2024-03-01 11:40 | XMS_ITS | Encounter Summary ---
Author Organization [facility] Address [address] [place] [address] Care Team Providers Care Rug Sample Beveler Name Role Phone Unavailable Primary Care Provider Unavailabl e Encounter Details Date Type Department Care Team (Late st Contact Info) Description 02/18/2008 Before PRISM Converted Visit (Maple) [facility] - Maple conversion [address] [place] [address] Shivam Iyer MD [address] [place] [address] Social History Tobacco Use Types Packs/Day Years [...] reading/interpreti ng unformatted reports. ? Name: ? DERRELL APODACA E ? Accession #: ? [id number] ? : ? 1970 (Age: 38) ??M ? Collect Date: ? 02/18/2008 ? Location: ? [facility] ? Receive Date: ? 02/18/2008 ? Provider: SHIVAM IYER MD ? Copy to: MICAH MYERS APIARIST ? Final Pathologic Diagnosis: ? A. ?Rectum, [...] cramps ? Gross Description: ? Received in [employer] fixative labelled Paulie and #1 bx rectum are ? three pieces of tissue which range from 0.8 x 0.2 x 0.2 cm to 0.2 x 0.2 x 0.1 cm which are submitted intact as (A). ? Received in [employer] fixative labelled Paulie and #2 bx duodenum are two ?? pieces of tissue which measures 0.3 x 0.3 x 0.2 cm and 0.2 x 0.2 x 0.2 cm which are submitted intact as (B). ??(David Delarosa)/hanh ? End of Report ? [facility] 02/18/2008 02/18/2008 10: 14 EST us Shivam Iyer MD PATHOLOGY ORDERABLES Final Result Performing Organization Address City/State/[facility] Co de Phone Number [facility] [address] [place] [address] documented in this encounter Visit Diagnoses Not on filedocumented in this encounter
--- OUTSIDE RECORDS SUMMARY | 2024-03-01 11:40 | XMS_ITS | Encounter Summary ---
Author Organization [facility] Address [address] [place] [address] Care Team Providers Care Welfare Service Aide Name Role Phone Unknown, Provider MD Primary Care Provider Unava ilable Encounter Details Date Type Department Care Team (Late st Contact Info) Description 07/17/2017 Results Only [facility] [phone] Lobo Roper MD [address] [facility] [place] [address] Social History Tobacco Use Types [...] ? DERRELL APODACA ? Accession #: ? [id number] ? : ? 1970 (Age: 47) ??M [...] (ASCP) 07/18/2017 4:00 PM End of Report [facility] 07/17/2017 15:4 4 EDT 07/18/2017 15:44 EDT us Lobo Roper MD PATHOLOGY ORDERABLES Final R esult [facility] [address] [place] [address] documented in this encounter Visit Diagnoses Not on filedocumented in this encounter Care Teams Welfare Service Aide Relationship Specialty Start Date End Date Unknown, Provider, PCP - General 05/17/13 07/19/17 documented as of this encounter
--- OUTSIDE RECORDS SUMMARY | 2024-03-01 11:40 | XMS_ITS | Encounter Summary ---
Author Organization [facility] Address [address] [place] [address] Care Team Providers Care Senior Informatica Developer Name Role Phone Unknown, Provider MD Primary Care Provider Unava ilable Encounter Details Date Type Department Care Team (Latest Contact Info) Description 07/17/2017 11:07 EDT - 07/17/2017 23:59 EDT Hospital Encounter [address] [address] Unknown, Provider, Discharge Disposition: Home or Self [...] Code Departure Means Destination Home or Self Long-Term documented in this encounter Plan of Treatment Not on file documented as of this encounter Visit Diagnoses Not on filedocumented in this encounter Care Teams Senior Informatica Developer Relationship Specialty Start Date End Date Unknown, Provider, PCP - General 05/17/13 07/19/17 documented as of this encounter
--- OUTSIDE RECORDS SUMMARY | 2024-03-01 11:40 | XMS_ITS | Encounter Summary ---
Author Organization [facility] Address [address] [place] [address] Care Team Providers Care Cardiac Cath Lab Manager Name Role Phone Unavailable Primary Care Provider Unavailabl e Encounter Details Date Type Department Care Team (Latest Contact Info) Description 05/13/2013 13:41 EST - 05/13/2013 23:59 EST Hospital Encounter [address] [address] Unknown, Provider, MD Discharge Disposition: Home or Self Care Social History Tobacco Use Types Packs/Day Years Used Date Smoking Tobacco: Never Assessed Sex and Gender Information Value Date Recorded Sex Assigned at Not on file Legal Sex Male 18:26 EST Gender Identity Not on file Sexual Orientation Not on file documented as of this encounter Discharge Disposition Disposition Code Departure Means Destination Home or Self Nursing Home documented in this encounter Plan of Treatment Not on file documented as of this encounter Visit Diagnoses Not on filedocumented in this encounter
--- OUTSIDE RECORDS SUMMARY | 2024-03-01 11:40 | XMS_ITS | Clinical Summary ---
Author Organization [facility] Address [address] [place] [address] Care Team Providers Care Orchard Pruner Name Role Phone Tyler Tiwari Primary Care Provider [phone] Social History Tobacco Use Types Packs/Day Years [...] Screen 1970 Hepatitis B Vaccine (1 of - 19+ 3-dose series) 01/05 COVID-19 Vaccine ( season) 2023 Insurance MEDICAID [place] Care Teams Orchard Pruner Relationship Specialty Start Date End Date Tyler Tiwari DO PCP - General 07/20/17
--- OUTSIDE RECORDS SUMMARY | 2024-03-01 11:40 | XMS_ITS | Encounter Summary ---
Author Organization [facility] Address [address] [place] [address] Care Team Providers Care Staffing Coordinator Name Role Phone Unavailable Primary Care Provider Unavailabl e Encounter Details Date Type Department Care Team (Late st Contact Info) Description 05/13/2013 Results Only [facility] - [facility] ([facility] [address] [place] [address] [phone] Hemanth Chavez MD [address] [place] [phone] Social History Tobacco Use Types Packs/Day Years [...] ? DERRELL APODACA ? Accession #: ? [id number] ? : ? 1970 (Age: 43) ??M [...] cm in thickness with no nodules present. Returns Processor sections are submitted as 1 and 2. Tess Herrera 05/15/2013 09:13 AM End of Report [facility] 05/13/2013 16:2 1 EST 05/14/2013 16:21 EST us Hemanth Chavez MD PATHOLOGY ORDERABLES Final R esult [facility] [address] [place] [address] documented in this encounter Visit Diagnoses Not on filedocumented in this encounter
--- OUTSIDE RECORDS SUMMARY | 2024-03-01 11:41 | XMS_ITS | Encounter Summary ---
Author Organization [facility] Address [address] [place] [address] Care Team Providers Care Automobile Body Repairer Name Role Phone Unavailable Primary Care Provider Unavailabl e Encounter Details Date Type Department Care Team (Latest Contact Info) Description 04/20/2000 17:31 EST - 04/23/2000 11:59 EST Hospital Encounter [facility] [address] [place] [address] Nahum Montenegro MD [address] [place] [address] [address] [place] [address] Discharge Disposition: Home or Self [...] EST Nahum Montenegro MD CHEMISTRY & BLOOD GAS ORDERA BLES Final Result [facility] [address] [place] [address] * CREATININE (04/22/2000 10:50 EST) Creatinine 1.2 0.7 - 1.5 mg/dl [facility] 04/22/2000 10:5 0 EST 04/22/2000 11:40 EST Nahum Montenegro MD HISTORICAL LAB FOR SQ LOAD F inal Result Performing Organization Address [facility] de Phone Number [facility] [address] [place] [address] * (ABNORMAL) HEMAGRAM (04/22/2000 10:50 EST) WBC 7.28 4.0 - 10.4 K/cmm [facility] RBC 4.21(L) 4.36 - 5.78 M/cmm [facility] Hemoglobin 13.8 13.8 - 17.3 gm/dl [facility] HCT 39.4(L) 39.5 - 50.2 % [facility] MCV 94 81 - 95 fl [facility] MCH 32.9 27.6 - 33.0 pg [facility] MCHC 35.1 32.8 - 36.4 gm/dl [facility] PLT 194 141 - 320 K/cmm [facility] RDW-CV 12.4 11.8 - 14.1 % [facility] 04/22/2000 10:5 0 EST 04/22/2000 11:40 EST Nahum Montenegro MD HEMATOLOGY & PF4 ORDERABLES Final Result Performing Organization Address [facility] de Phone Number [facility] [address] [place] [address] * (ABNORMAL) BUN (04/22/2000 10:50 EST) BUN 9(L) 10 - 26 mg/dl [facility] 04/22/2000 10:5 0 EST 04/22/2000 11:40 EST Nahum Montenegro MD CHEMISTRY & BLOOD GAS ORDERA BLES Final Result Performing Organization Address [facility] de Phone Number [facility] [address] [place] [address] * KIDNEY STONE ANALYSIS (04/21/2000 9:48 EST) Source (Note) Right Ureter ? [facility] Weight 0.014 Unit: g ?? [facility] 1st Constituent (Note) 100% Calcium oxalate monohydrate ? [facility] 04/21/2000 9:48 EST 04/22/2000 9:48 EST us Nahum Montenegro MD GEN LAB UNIT COLLECT ORDERAB LES Final Result [facility] [address] [place] [address] * CT PELVIS WO/CONTRAST (04/21/2000 9:10 EST) [...] and pleural effusions. /law Nahum Montenegro MD [facility] CT ORDERABLES Final Resu lt * CT ABDOMEN WO CONTRAST (04/21/2000 9:09 EST) Anatomical Region Laterality Modality Other 04/21/2000 9:09 EST Narrative 02/17/2009 19:36 EST RT FLANK PAIN, R.O STONE Procedure Note Fay Fontana MD - 02/17/2009 RT FLANK PAIN, R.O STONE Nahum Montenegro MD [facility] CT ORDERABLES Final Resu lt * BACTERIAL CULTURE, URINE (04/20/2000 20:00 EST) Specimen Description Urine [facility] Result No growth [facility] Report Status Final [id number] [facility] 04/20/2000 20:0 0 EST 04/20/2000 21:20 EST Nahum Montenegro MD MICROBIOLOGY - GENERAL ORDER DAVIDSON Final Result Performing Organization Address [facility]/ZIP Co de Phone Number [facility] [address] [place] [address] * URINE MICROSCOPIC (04/20/2000 20:00 EST) WBC, UA 1 to 5 0 - 5 /HPF [facility] RBC, UA >50 0 - 5 /HPF [facility] Squam Epithel, UA None seen NS /HPF [facility] Renal Epithel, UA None seen NS /HPF [facility] Bacteria, UA None seen NS /HPF [facility] Crystals, UA None seen /HPF [facility] Hyaline Casts, UA None seen /LPF [facility] UA Comment Microscopic results are unreliable on urines unrefrig >2hrs or refrig >8hrs. [facility] 04/20/2000 20:0 0 EST 04/20/2000 20:38 EST Nahum Montenegro MD URINALYSIS ORDERABLES Final Result Performing Organization Address [facility] Co de Phone Number [facility] [address] [place] [address] * (ABNORMAL) URINALYSIS (04/20/2000 20:00 EST) Color, UA Red [facility] Clarity, UA Cloudy [facility] Glucose, UA Norm NORM [facility] Bilirubin, UA Neg NEG [facility] Ketones, UA Mod(A) NEG [facility] Specific [place], Urine 1.010 1.005 - 1.02 [facility] Blood, UA Large(A) NEG [facility] pH, UA 5.0 5.0 - 9.0 [facility] Protein, UA 1+(A) NEG [facility] Urobilinogen, UA Norm NORM mg/dL [facility] Nitrite, UA Neg NEG [facility] Leuk Esterase Small(A) NEG [facility] 04/20/2000 20:0 0 EST 04/20/2000 20:38 EST Nahum Montenegro MD URINALYSIS ORDERABLES Final Result Performing Organization Address [email or web address] de Phone Number [facility] [address] [place] [address] * ELECTROLYTES (04/20/2000 17:10 EST) Sodium 137 136 - 145 mEq/L [facility] Potassium 4.8 3.5 - 5.0 mEq/L [facility] Chloride 104 96 - 110 mEq/L [facility] CO2 25 24 - 30 mEq/L [facility] 04/20/2000 17:1 0 EST 04/20/2000 19:15 EST Nahum Montenegro MD CHEMISTRY & BLOOD GAS ORDERA BLES Final Result Performing Organization Address [facility] [[email or web address]] de Phone Number [facility] [address] [place] [address] * CREATININE (04/20/2000 17:10 EST) Creatinine 1.3 0.7 - 1.5 mg/dl [facility] 04/20/2000 17:1 0 EST 04/20/2000 19:15 EST Nahum Montenegro MD HISTORICAL LAB FOR SQ LOAD F inal Result Performing Organization Address [facility] [[email or web address]] de Phone Number [facility] [address] [place] [address] * (ABNORMAL) HEMAGRAM (04/20/2000 17:10 EST) WBC 8.13 4.0 - 10.4 K/cmm [facility] RBC 4.16(L) 4.36 - 5.78 M/cmm [facility] Hemoglobin 14.1 13.8 - 17.3 gm/dl [facility] HCT 38.7(L) 39.5 - 50.2 % [facility] MCV 93 81 - 95 fl [facility] MCH 33.9(H) 27.6 - 33.0 pg [facility] MCHC 36.4 32.8 - 36.4 gm/dl [facility] PLT 155 141 - 320 K/cmm [facility] RDW-CV 12.5 11.8 - 14.1 % [facility] 04/20/2000 17:1 0 EST 04/20/2000 19:15 EST Nahum Montenegro MD HEMATOLOGY & PF4 ORDERABLES Final Result Performing Organization Address [facility] [[email or web address]] de Phone Number [facility] [address] [place] [address] * BUN (04/20/2000 17:10 EST) BUN 10 10 - 26 mg/dl [facility] 04/20/2000 17:1 0 EST 04/20/2000 19:15 EST Nahum Montenegro MD CHEMISTRY & BLOOD GAS ORDERA BLES Final Result Performing Organization Address [facility] [[email or web address]] de Phone Number [facility] [address] [place] [address] documented in this encounter Visit Diagnoses Not on filedocumented in this encounter
[2024-03-01 19:17] LABS: TSH 0.63 uIU/mL (0.36-3.74)
== END 2024-03-01 11:41 | disposition home or self-care (01) ==
LOC: NCHCN 11:40
PROVIDERS: PCP Nurse Practitioner; Visit Provider Nurse Practitioner Family
DX: E03.9 Hypothyroidism, unspecified (principal)
CPT/HCPCS: 80053; 80061; 85027; 84443

== ENCOUNTER 2024-07-24 09:32 | Outpatient (REF) | payer MEDICAID, SELFPAY ==
[2024-07-24 21:03] LABS: TSH 3.34 uIU/mL (0.36-3.74)
== END 2024-07-24 09:33 | disposition home or self-care (01) ==
LOC: NCHCN 09:32
PROVIDERS: PCP Nurse Practitioner; Visit Provider Nurse Practitioner Family
DX: E03.9 Hypothyroidism, unspecified (principal)
CPT/HCPCS: 84443

== ENCOUNTER 2025-01-16 19:10 | Outpatient (REF) | payer MEDICAID, SELFPAY ==
--- NOTE | 2025-01-16 10:15 | SKI_PTH ---
PATIENT: Sylvester Apodaca JR LOC: [facility]#:[id number] AGE/SX: 55/M ROOM: RE01/16/[address]: Kelly Khan : 1970 BED: DIS: 01/16/2025 SPEC #: [id number] RECD: 01/17/25 10:52 STATUS: JACKELYN REQ #: [id number] MARIE: 01/16/25 10:[address]: [facility] DEPT: Surgical Specimen RECD BY: Elizabeth Samuel ENTERED: 01/17/25 10:53 SP TYPE: SKI OTHR DR: Precious Covarrubias Tissues: 1 - SKIN CYST/TAG/DEBRIDEMENT Procedures: GROSS AND MICRO LEVEL 4 Comments: [id number]
== END 2025-01-16 19:11 | disposition home or self-care (01) ==
LOC: NCHCN 19:10
PROVIDERS: PCP Nurse Practitioner; Visit Provider Nurse Practitioner Family
DX: L57.0 Actinic keratosis (principal)
CPT/HCPCS: 88305; 88304